=== PATIENT | male | born 1975 | race Caucasian/White ===

== ENCOUNTER → 2019-02-22 | Outpatient (CLI) | payer OTHER ==
[~2019-02-22] MED LIST: AMBIEN PAK10 MG; ATENOLOL; GLIPIZIDE XL5 MG PO; INSULIN REGULAR HUMAN SQ; Insulin Detemir SQ; LEXAPRO; LISINOPRIL-HCT1 EAC4; METFORMIN HCL500 MG PO; TENORMIN 25MG T25 MG PO; TRAMADOL HCL50 MG; Z.0.ARMOUR THYROID30; Z.0.CELEBREX200 MG; Z.0.DIAZEPAM5 MG; Z.0.DICYCLOMINE HCL1; Z.0.MELOXICAM15 MG
--- NOTE | 2019-02-22 15:29 | Diagnostic Imaging Report ---
EXAMINATION: CHEST 2 VIEWS, RIBS UNILAT W/CXR INDICATION: Chest pain COMPARISON: None FINDINGS: LINES/TUBES:None LUNGS:The lungs are well-inflated. No focal consolidation or pulmonary edema. PLEURA:No pleural effusion or pneumothorax. MEDIASTINUM:The cardiomediastinal silhouette appears normal in size and shape. BONES/SOFT TISSUES:No acute rib fracture. There are old healed fractures of the right anterolateral fourth and fifth ribs. ABDOMEN:No free air under the diaphragm. IMPRESSION: No acute rib fracture. Old healed fractures of right anterolateral fourth and fifth ribs. No focal pneumonia or pulmonary edema. Signed by: Sravani Pereira MD on 02/22/2019 3:25 PM
== END ==
LOC: RAD 13:12
PROVIDERS: ATTEND Family Medicine
DX: R07.89 Other chest pain (principal)
CPT/HCPCS: 71046; 71101